=== PATIENT | male | born 1935 | race Caucasian/White ===

== ENCOUNTER 2016-06-26 05:18 | Day surgery (SDC) | payer OTHER, MEDICARE ==
[~2016-06-26] VITALS: Ht 170.2 cm; Wt 78.5 kg
--- NOTE | ~2016-06-26 | O ---
[facility] [place] [address] OPERATIVE REPORT Name: REGINO LIMA Room #: DEP [facility].#: [id number] Admission: 06/26/16 Attend Phys: Juan Ray MD Discharge: 06/26/16 Date of : 37 Report #: [id number] THIS REPORT FOR: //name// CC: Juan Guerra DATE OF SERVICE: 06/26/2016 PREOPERATIVE DIAGNOSIS: Left humerus fracture. POSTOPERATIVE DIAGNOSIS: Left humerus fracture. PROCEDURE: Left humerus open reduction and internal fixation. SURGEON: Juan Ray MD URINALYSIS TECHNICIAN: Med Leyva, nurse practitioner. INDICATIONS FOR URINALYSIS TECHNICIAN: During the course of operation, extensive manipulation, retraction and limb positioning was required. This was afforded to me by my assistant golf coach. ANESTHETIC: General. INDICATIONS: See hospital H and P. DESCRIPTION OF PROCEDURE: After adequate general anesthesia had been obtained, the patient's left upper extremity was prepped and draped in the usual meticulous sterile fashion. An anterior incision was made to the humerus. SubQ divided using gentle spreading technique. The deltopectoral interval was identified and the fascia distally was divided. The biceps was retracted medially. The musculocutaneous nerve was palpated. The brachialis was split longitudinally in its midsubstance to expose the humerus. The fracture was identified. It was irrigated. It was a long oblique fracture in the coronal plane. Care was taken to gently elevate the soft tissue off the distal fragment at the mid portion of the oblique fracture to ensure no injury to the radial nerve. The fracture was reduced anatomically, held in place with a clamp, and a single 18-gauge cerclage was in place for provisional fixation. A tenaculum was then placed distally to ensure no movement at the fracture site. A 12-hole [employer] DCP plate was then applied and held in place with a clamp. A compression screw was placed proximally and one distally and then the reduction was checked and found to be in good position on the C-arm. The wound was irrigated copiously once again and then all the screws were filled with bicortical screws. The proximal three screws were filled with locking screws for better fixation on the softer bone proximally. was checked in [address] [place] [id number] OPERATIVE REPORT Name: REGINO LIMA [facility] [id number] Admission: 06/26/16 Attend Phys: Juan Ray MD Discharge: 06/26/16 Date of : 37 Report #: [id number] planes and found to be in good position. The wound was then irrigated copiously. The fascia was reapproximated with 2-0 Vicryl, subq closed with 2-0 Monocryl, skin closed with yonathan. Sterile compressive dressing was applied. <ELECTRONICALLY SIGNED> By: Juan Ray MD 07/01/16 [id number] Juan Ray MD /bertha
[~2016-06-26 05:18] MED LIST: ASPIR 8181 MG PO; CALCIUM 600 +1 EAC1 PO; CENTRUM SILVER1 EAC2 PO; COMBIGAN EYE DR10 ML OP; PRIMIDONE50 MG PO; TOPAMAX 25 MG T25 M1 PO; TRAMADOL 50 MG50 MG PO; VITAMIN D1000 UNI1 PO
== END 2016-06-26 16:25 | disposition home or self-care (01) ==
LOC: OR 05:18 → TBA 05:18 → OR 10:58
DX: S42.202A Unspecified fracture of upper end of left humerus, initial encounter for closed fracture (principal); X58.XXXA Exposure to other specified factors, initial encounter; Y93.89 Activity, other specified; Y92.89 Other specified places as the place of occurrence of the external cause; Y99.8 Other external cause status; Z98.42 Cataract extraction status, left eye; Z98.41 Cataract extraction status, right eye; Z96.1 Presence of intraocular lens; Z87.891 Personal history of nicotine dependence
CPT/HCPCS: 50010; 50101; 50341; 50386; 50417; 50606; 50612; 51412; 51602; 54330; 56525; 56667; 62110; 62900; 64037; 64042; 64043; 70005